=== PATIENT | male | born 1980 | race Two or more races ===

== ENCOUNTER → 2025-06-28 | Outpatient (CLI) | payer MEDICAID, SELFPAY ==
--- NOTE | 2025-06-28 | XR_ITS ---
EXAMINATION: Cervical spine, 5 views Technique: Cervical spine AP, AP odontoid, lateral, bilateral obliques, 5 views Exam date and time: June 28, 2025, 1217 hours INDICATIONS: Neck pain beginning 3 years ago FINDINGS: Adequate alignment cervical vertebral bodies. No cervical fracture. Intact odontoid. Advanced degenerative disc disease C5-C6, C6-C7 with moderate to advanced bilateral neural foraminal stenosis IMPRESSION: Advanced degenerative disc disease C5-C6, C6-C7,.
== END | disposition home or self-care (01) ==
PROVIDERS: PCP Registered Nurse Community Health; Referring Provider Registered Nurse Community Health; Visit Provider Registered Nurse Community Health
DX: M50.322 Other cervical disc degeneration at C5-C6 level (principal)
CPT/HCPCS: 72050

== ENCOUNTER → 2025-08-04 | Outpatient (CLI) | payer MEDICAID, SELFPAY ==
--- NOTE | 2025-08-04 | XR_ITS ---
Examination: Abdomen sonogram, Limited Date and time of exam: August 04, 2025, 11:55 a.m. INDICATIONS: Palpable lump in the umbilicus region 3 weeks Technique: Real-time pederson scale transabdominal sonographic images of the upper abdomen obtained. Findings: No cystic or solid mass at the area of concern IMPRESSION: No cystic or solid mass at the area of concern
== END | disposition home or self-care (01) ==
LOC: CDIM 11:13
PROVIDERS: PCP Registered Nurse Community Health; Referring Provider Registered Nurse Community Health; Visit Provider Registered Nurse Community Health
DX: K42.9 Umbilical hernia without obstruction or gangrene (principal)
CPT/HCPCS: 76705

== ENCOUNTER → 2025-08-22 | Outpatient (CLI) | payer MEDICAID, SELFPAY ==
--- NOTE | 2025-08-22 17:00 | XR_ITS ---
Examination: MRI cervical spine without intravenous contrast Date and time of exam: August 22, 2025, 1813 hours INDICATIONS: Neck pain 3 years numbness in the arms weakness in the arms Technique: Multiple axial and sagittal sections of the cervical spine to been obtained. T2 weighted sagittal sections, TR 3, 270, TE 117 T1-weighted sagittal sections, TR 500, TE 11 T1-weighted axial sections, TR 607, TE 12, axial sections TR 18, TE 27 and T2 weighted transverse sections, TR 3920, TE 122. Findings: Straightening normal cervical lordosis No cervical fracture Intact odontoid Diffuse cervical disc desiccation Moderate to advanced disc narrowing C6-C7 No localized enlargement cervical cord C2-C3 no disc protrusion C3-C4 advanced left neuroforaminal stenosis C4-C5 moderate right and advanced left neuroforaminal stenosis C5-C6 significant spinal stenosis, 4 mm central subarticular osteophyte disc complex, indenting the ventral margin cervical cord, advanced bilateral neural foraminal stenosis C6-C7 advanced spinal stenosis, 4 mm central subarticular osteophyte disc complex, indenting ventral margin cervical cord advanced bilateral neural foraminal stenosis C7-T1 moderate bilateral neuroforaminal stenosis IMPRESSION: Significant spinal stenosis C5-C6, C6-C7 as above
== END | disposition home or self-care (01) ==
PROVIDERS: PCP Registered Nurse Community Health; Referring Provider Registered Nurse Community Health; Visit Provider Registered Nurse Community Health
DX: M48.02 Spinal stenosis, cervical region (principal)
CPT/HCPCS: 72141